=== PATIENT | male | born 1995 | race American Indian/Alaskan Native ===

== ENCOUNTER 2020-11-23 00:03 | Emergency (ER) | payer OTHER ==
[2020-11-23 01:53] VITALS: BP 129/77
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
[2020-11-23] MEDS ORDERED: IBUPROFEN 800 MG TAB PO ONE (02:47)
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
== END 2020-11-23 03:28 | disposition home or self-care (01) ==
LOC: ED 00:03
DX: S16.1XXA Strain of muscle, fascia and tendon at neck level, initial encounter (principal); S80.12XA Contusion of left lower leg, initial encounter; Z79.1 Long term (current) use of non-steroidal anti-inflammatories (NSAID); Z79.899 Other long term (current) drug therapy; Z98.890 Other specified postprocedural states; V49.59XA Passenger injured in collision with other motor vehicles in traffic accident, initial encounter; Y93.89 Activity, other specified; Y92.410 Unspecified street and highway as the place of occurrence of the external cause; Y99.8 Other external cause status